=== PATIENT | male | born 1980 | race Caucasian/White ===

== ENCOUNTER 2020-08-23 20:42 | Inpatient (IN) | payer OTHER ==
[~2020-08-23] VITALS: Ht 185.4 cm; Wt 64.0 kg
[~2020-08-23 20:42] MED LIST: ASPIRIN CHEWABL81 MG PO; CEROVITE ADVAN1 EACH PO; DESYREL 50 MG T50 MG PO; ENSURE ACTIVE414 ML PO; FEOSOL325 MG PO; GABAPENTIN400 MG PO; HYSEPT473 ML TOP; INVANZ 1 GM VIAL1 GM IV; LIORESAL TAB 1010 MG PO; LORTAB 7.5-3251 EACH PO; LOVENOX SY30 MG/0.3 SQ; LOVENOX40 MG/0.4 SQ; OXYCODONE HCL5 MG PO; RENO CAPS SOFTGE1 MG PO; THERAGRAN M TAB1 EA PO; TYLENOL 500 MG500 MG PO; VANCOMYCIN HCL1 GM IV; VITAMIN D325 MC1 PO
[2020-08-23 21:39] LABS: HEMOGLOBIN 10.9 gm/dl (14.0-17.5); RED BLOOD COUNT 4.22 M/UL (4.20-5.50); WHITE BLOOD COUNT 14.6 K/UL (4.5-11.0)
[2020-08-23 21:57] LABS: BUN/CREATININE RATIO 14 (0-10)
[2020-08-24 04:36] LABS: RED BLOOD COUNT 3.9 M/UL (4.20-5.50); WHITE BLOOD COUNT 11.7 K/UL (4.5-11.0)
[2020-08-24 04:55] LABS: BUN/CREATININE RATIO 13 (0-10)
--- NOTE | 2020-08-24 17:57 | NUR ---
DR. LOPEZ PA REQUESTED TO LEAVE THE DRESSING OFF THE BILATERAL LOWER EXTRIMITIES D/T DR. LOPEZ WILL COME AND SEE PATIENT AFTER THE SURGERY SHE IS WORKING ON. [employer] DRESSING NOT TO OPEN UNTIL DR. LOPEZ COMES.
--- NOTE | 2020-08-25 16:48 | NUR ---
VANCOMYCIN DUE AT 1600 GIVEN
--- NOTE | 2020-08-25 20:57 | NUR ---
NOTIFIED PHARMACY AT 2030 ON 08/25/20 THAT MERREM WAS NOT ADMINISTERED UNTIL STARTING AT 1845. PHARMACY STATED TO HOLD 2200 DOSE AND START BACK WITH 0400 DOSE ON 08/26/20.
[2020-08-26 04:33] LABS: HEMOGLOBIN 9.6 gm/dl (14.0-17.5); RED BLOOD COUNT 3.81 M/UL (4.20-5.50)
[2020-08-26 04:49] LABS: BUN/CREATININE RATIO 11 (0-10)
[2020-08-26 05:03] LABS: WHITE BLOOD COUNT 7.7 K/UL (4.5-11.0)
--- NOTE | 2020-08-26 10:17 | NUR ---
PATIENT HAS BEEN USING SAND BED R/T PRESSURE ULCER.
--- NOTE | 2020-08-27 13:59 | NUR ---
CALORIE COUNT DAY 1 (08/26/20): PT REFUSED BREAKFAST AND LUNCH MEALS INCLUDING SUPPLEMENTS. PT ATE 100% OF DINNER MEAL (754KCAL AND 29G PRO) AND HAD 2 JELLO'S FOR A SNACK (20KCAL, 2G PRO). IN TOTAL, PT HAD 774KCAL AND 31G PRO.
[2020-08-28 05:02] LABS: HEMOGLOBIN 9.1 gm/dl (14.0-17.5); RED BLOOD COUNT 3.71 M/UL (4.20-5.50); WHITE BLOOD COUNT 7.5 K/UL (4.5-11.0)
[2020-08-28 05:34] LABS: BUN/CREATININE RATIO 20 (0-10)
[2020-08-29 04:56] LABS: HEMOGLOBIN 9.6 gm/dl (14.0-17.5); RED BLOOD COUNT 3.92 M/UL (4.20-5.50); WHITE BLOOD COUNT 7.8 K/UL (4.5-11.0)
[2020-08-29 05:15] LABS: BUN/CREATININE RATIO 21 (0-10)
[2020-08-30 06:01] LABS: BUN/CREATININE RATIO 29 (0-10)
[2020-08-31 03:42] LABS: BUN/CREATININE RATIO 40 (0-10)
--- NOTE | 2020-08-31 14:05 | NUR ---
Spoke to WILLIAMS Rojas re: PICC vs midline. RN waiting to speak to Dr. Cornelius for length of antibiotic therapy. .
--- NOTE | 2020-08-31 15:44 | NUR ---
20G X 10CM MIDLINE PLACED IN THE LEFT BASILIC VEIN. ASPIRATES AND FLUSHES WELL. ULTRASOUND UTILIZED.
[2020-09-01 05:36] LABS: BUN/CREATININE RATIO 31 (0-10)
--- NOTE | 2020-09-01 15:51 | NUR ---
09/01/20 1550 PATIENT REFUSED TO HAVE LAB TO STICK HIM, BLOOD DRAWN FROM MIDLINE. VINNY WADSWORTH AWARE
[2020-09-02 08:30] LABS: BUN/CREATININE RATIO 36 (0-10)
[2020-09-03 04:13] LABS: BUN/CREATININE RATIO 33 (0-10)
[2020-09-04 04:07] LABS: BUN/CREATININE RATIO 24 (0-10)
[2020-09-05 05:29] LABS: BUN/CREATININE RATIO 21 (0-10)
[2020-09-06 05:58] LABS: BUN/CREATININE RATIO 23 (0-10)
[2020-09-07 03:37] LABS: BUN/CREATININE RATIO 22 (0-10)
[2020-09-07] MEDS ORDERED: VANCOMYCIN HCL1 GM IV (17:34)
[2020-09-07] MEDS ORDERED: [UNRECOGNIZED DRUG - OTHER] IV (17:34)
[2020-09-07] MEDS ORDERED: DRONABINOL2.5 MG PO (17:37)
[2020-09-07] MEDS ORDERED: HYDROCODONE-AC1 EAC1 PO (17:37)
[2020-09-07] MEDS ORDERED: JUVEN PACKET1 EACH PO (17:37)
[2020-09-08 05:49] LABS: RED BLOOD COUNT 3.92 M/UL (4.20-5.50); WHITE BLOOD COUNT 7.1 K/UL (4.5-11.0)
[2020-09-08 06:05] LABS: BUN/CREATININE RATIO 28 (0-10)
--- NOTE | 2020-09-08 15:01 | NUR ---
REPORT GIVEN TO KAREN ADMITTING NURSE OF [facility]
--- NOTE | 2020-09-08 16:17 | NUR ---
PATIENT HAS BEEN USING SAND BED.
== END 2020-09-08 17:00 | DRG 853 ==
LOC: ER1 20:42 → M/S 22:23 → CDU 22:23 → M/S 08-24 02:30 → ZEROF 08-26 12:00 → M/S 08-26 12:00
PROVIDERS: Family Medicine; Internal Medicine; Internal Medicine Infectious Disease; Surgery; ADMIT Internal Medicine
PROC: 0KDN0ZZ Extraction of Right Hip Muscle, Open Approach (ICD-10-PCS; 2020-08-25)
PROC: 0JD70ZZ Extraction of Back Subcutaneous Tissue and Fascia, Open Approach (ICD-10-PCS; 2020-08-25)
PROC: 0KDP0ZZ Extraction of Left Hip Muscle, Open Approach (ICD-10-PCS; principal; 2020-08-25 15:14)
PROC: 02HV33Z Insertion of Infusion Device into Superior Vena Cava, Percutaneous Approach (ICD-10-PCS; 2020-08-29)
DX: A41.02 Sepsis due to Methicillin resistant Staphylococcus aureus (principal); L89.154 Pressure ulcer of sacral region, stage 4; E43 Unspecified severe protein-calorie malnutrition; T83.518A Infection and inflammatory reaction due to other urinary catheter, initial encounter; N30.00 Acute cystitis without hematuria; M86.8X7 Other osteomyelitis, ankle and foot; Z68.1 Body mass index [BMI] 19.9 or less, adult; G82.20 Paraplegia, unspecified; E87.1 Hypo-osmolality and hyponatremia; I96 Gangrene, not elsewhere classified; A41.81 Sepsis due to Enterococcus; A41.52 Sepsis due to Pseudomonas; A41.59 Other Gram-negative sepsis; Y83.8 Other surgical procedures as the cause of abnormal reaction of the patient, or of later complication, without mention of misadventure at the time of the procedure; L89.522 Pressure ulcer of left ankle, stage 2; F32.9 Major depressive disorder, single episode, unspecified; Z20.822 Contact with and (suspected) exposure to COVID-19; L89.220 Pressure ulcer of left hip, unstageable; L89.210 Pressure ulcer of right hip, unstageable; L89.610 Pressure ulcer of right heel, unstageable; B96.1 Klebsiella pneumoniae [K. pneumoniae] as the cause of diseases classified elsewhere; B96.4 Proteus (mirabilis) (morganii) as the cause of diseases classified elsewhere; Z88.1 Allergy status to other antibiotic agents; F17.200 Nicotine dependence, unspecified, uncomplicated; E87.6 Hypokalemia; D50.9 Iron deficiency anemia, unspecified; Z91.14 Patient's other noncompliance with medication regimen; Z98.890 Other specified postprocedural states; Z56.0 Unemployment, unspecified
CPT/HCPCS: 0240U; 36415; 73718; 80048; 80053; 80202; 81001; 82962; 83540; 83550; 83605; 83735; 84100; 84132; 85025; 85610; 85652; 86140; 87040; 87070; 87077; 87086; 87186; 87205; 96374; 96375; 97110-GP-CQ; 97162; 97530-GP-CQ; 99284; C1751; J0713; J1100; J1650; J2001; J2185; J2250; J2405; J2704; J2710; J3010; J3370; J7030; J7050; J7070; J7120; U0002